=== PATIENT | male | born 1960 | race Caucasian/White ===

== ENCOUNTER → 2022-05-15 | Day surgery (SDC) | payer BC | END | disposition home or self-care (01) | LOC: MSO 08:06 | DX: D12.5 Benign neoplasm of sigmoid colon (principal); K57.30 Diverticulosis of large intestine without perforation or abscess without bleeding; J45.909 Unspecified asthma, uncomplicated; Z79.82 Long term (current) use of aspirin; Z86.16 Personal history of COVID-19 | CPT/HCPCS: 00811; J2704; J7120 ==

== ENCOUNTER 2025-01-27 14:38 | Emergency (ER) | payer BC ==
[~2025-01-27] VITALS: Ht 12.7 cm; Wt 84.1 kg
[~2025-01-27 14:38] MED LIST: GOOD SENSE ASPI81 M1 PO; LISINOPRIL20 MG PO
[2025-01-27] MEDS ORDERED: PRILOSEC 20MG20 MG PO (14:48)
[2025-01-27 15:01] LABS: BASO # 0.04 K/mm3 (0.02-0.10); EOS # 0.38 K/mm3 (0.04-0.40); EOS % 4.6 % (0.0-4.0); HEMATOCRIT 43.8 % (42.0-52.0); LYMPH# 2.64 K/mm3 (1.50-4.00); MEAN CELL VOLUME 91 fl (78-100); MEAN CORPUSCULAR HEMOGLOBIN 31 pg (27-31); MEAN CORPUSCULAR HGB CONC 34 g/dL (33-37); MEAN PLATELET VOLUME 9.6 fl (7.4-10.4); MONO # 0.52 K/mm3 (0.20-0.80); NEU # 4.68 K/mm3 (1.40-6.50); PLATELET COUNT 212 K/mm3 (130-400); RED BLOOD COUNT 4.82 M/mm3 (4.20-5.60); WHITE BLOOD COUNT 8.3 K/mm3 (4.8-10.8)
[2025-01-27 15:06] LABS: ALBUMIN 4.2 g/dL (3.4-4.8); SODIUM 141 mmol/L (136-145)
[2025-01-27 15:07] LABS: CALCIUM 9.3 mg/dL (8.3-10.5)
[2025-01-27 15:08] LABS: GLUCOSE 200 mg/dL (75-110)
[2025-01-27 15:09] LABS: TOTAL PROTEIN 7.4 g/dL (6.2-8.1)
[2025-01-27 15:10] LABS: CARBON DIOXIDE 24 mmol/L (23-31); TOTAL BILIRUBIN 0.4 mg/dL (0.2-1.2)
[2025-01-27 15:14] LABS: AST-SGOT 19 U/L (5-34)
[2025-01-27 15:15] LABS: ALT/SGPT 18 U/L (0-55)
[2025-01-27 15:21] LABS: TROPONIN-I < 0.030 ng/mL (0.00-0.033)
[2025-01-27 15:48] LABS: D-DIMER 0.45 mg/L FEU (0.15-0.50)
[2025-01-27 16:41] VITALS: BP 145/74
== END 2025-01-27 16:41 | disposition home or self-care (01) ==
LOC: ED 14:38
PROVIDERS: Family Medicine
DX: R07.2 Precordial pain (principal); I10 Essential (primary) hypertension; Z79.82 Long term (current) use of aspirin
CPT/HCPCS: J7120